=== PATIENT | male | born 1980 | race Two or more races ===

== ENCOUNTER 2018-04-05 06:20 | Emergency (ER) | payer SELFPAY ==
[~2018-04-05] VITALS: Ht 182.9 cm; Wt 86.2 kg
[2018-04-05] MEDS ORDERED: SODIUM CHLORIDE 0.9% 1,000 ML IV ONE (06:40)
[2018-04-05] MEDS ORDERED: HYDROcodone-ACET 10/325MG TAB PO ONE (06:45)
[2018-04-05 07:17] LABS: Basophils # (auto) 0.1 uL; Basophils % (auto) 0.6 % (0.0-2.0); Eosinophils # (auto) 0.1 uL; Eosinophils % (auto) 1.4 % (0.0-7.0); Hematocrit 41.6 % (41.0-53.0); Hemoglobin 14.3 g/dL (13.5-17.5); Lymphocytes # (auto) 1.3 uL; Lymphocytes % (auto) 15.5 % (10.0-50.0); Mean Corpuscular Hemoglobin 30.1 pg (28.0-32.0); Mean Corpuscular Hgb Conc. 34.3 g/dL (32.0-36.0); Mean Corpuscular Volume 87.8 fL (80.0-100.0); Monocytes # (auto) 0.8 uL; Neutrophils # (auto) 6.1 uL; Neutrophils % (auto) 72.5 % (37.0-80.0); Platelet Count (auto) 212 10^3/uL (140-450); Red Blood Cells 4.74 10^6/uL (4.5-5.90); Red Cell Distribution Width 12.8 % (11.8-14.3); White Blood Cell 8.4 10^3/uL (4.4-10.8)
[2018-04-05 07:27] LABS: Alanine Aminotransferase 67 U/L (16-61); Albumin 3.8 g/dL (3.4-5.0); Anion Gap 7 (5-15); Aspartate Aminotransferase 29 U/L (15-37); BUN/Creatinine Ratio 16.3; Blood Urea Nitrogen 15 mg/dL (7-18); Calcium 8.4 mg/dL (8.5-10.1); Carbon Dioxide 24 mmol/L (21-32); Chloride 107 mmol/L (98-107); GFR African American 119 mL/min; GFR Non-African American 98 mL/min; Glucose 99 mg/dL (74-106); Potassium 3.7 mmol/L (3.5-5.1); Sodium 138 mmol/L (136-145)
[2018-04-05 07:31] LABS: Alkaline Phosphatase 62 U/L (45-117); Bilirubin, Total 0.8 mg/dL (0.2-1.0); Total Protein 7.4 g/dL (6.4-8.2)
[2018-04-05 09:18] VITALS: BP 106/71
== END 2018-04-05 09:31 | disposition home or self-care (01) ==
LOC: ER 06:23
DX: R07.89 Other chest pain (principal)
CPT/HCPCS: 36415; 71045; 80053; 84484; 85025; 94761; 99285; J7030

== ENCOUNTER 2018-06-07 15:38 | Emergency (ER) | payer MEDICAID ==
[~2018-06-07] VITALS: Ht 167.6 cm; Wt 90.7 kg
[2018-06-07 15:51] VITALS: BP 131/95
== END 2018-06-07 17:36 | disposition home or self-care (01) ==
LOC: ER 15:46
DX: S51.811D Laceration without foreign body of right forearm, subsequent encounter (principal); X58.XXXD Exposure to other specified factors, subsequent encounter